=== PATIENT | male | born 1960 | race American Indian/Alaskan Native ===

== ENCOUNTER 2017-02-13 16:13 | Emergency (ER) | payer SELFPAY ==
[2017-02-13 16:26] VITALS: BP 167/116
== END 2017-02-13 16:23 | disposition left against medical advice (07) ==
LOC: ED 16:13
DX: R20.0 Anesthesia of skin (principal); R53.1 Weakness; Z53.21 Procedure and treatment not carried out due to patient leaving prior to being seen by health care provider
CPT/HCPCS: 93005; 93010